=== PATIENT | female | born 1970 | race Caucasian/White ===

== ENCOUNTER 2019-07-20 22:38 | Emergency (ER) | payer MEDICAID ==
[~2019-07-20] VITALS: Ht 160 cm; Wt 82.0 kg
[~2019-07-20 22:38] MED LIST: LISI2.5T47 PO
[2019-07-21] MEDS ORDERED: SODIUM CHLORIDE 0.9% 1,000 ML IV ONE (00:40)
[2019-07-21] MEDS ORDERED: ONDANSETRON HCL 4MG/2ML INJ IV STA (00:40)
[2019-07-21 00:59] LABS: BASOPHILS % 0.8 % (0.0-2.0); EOSINOPHILS % 0.4 % (0.0-5.0); HEMATOCRIT. 40.4 % (36.0-48.0); HEMOGLOBIN. 13.5 g/dL (12.0-16.0); LYMPHOCYTES % 18.1 % (20.0-50.0); MEAN CORPUSCULAR HEMOGLOBIN 30.1 pg (28.0-32.0); MEAN CORPUSCULAR VOLUME 89.7 fL (81.0-99.0); MEAN PLATELET VOLUME 7.7 fl (7.4-10.4); MONOCYTES % 7.7 % (2.0-8.0); PLATELET 341 x1000/uL (130-400); RED BLOOD CELL COUNT 4.51 mill/uL (4.2-5.4); RED CELL DISTRIBUTION WIDTH 13.7 % (11.6-14.6)
[2019-07-21 01:07] LABS: CHLORIDE 103 mEq/L (98-107)
[2019-07-21 01:40] LABS: CLARITY URINE CLOUDY (CLEAR); COLOR URINE YELLOW (YELLOW); KETONES URINE TRACE (NEGATIVE); LEUKOCYTE ESTERASE URINE NEGATIVE (NEGATIVE); NITRITE URINE NEGATIVE (NEGATIVE); OCCULT BLOOD URINE TRACE (NEGATIVE); PH URINE 6.5 (4.5-8.0); PROTEIN URINE NEGATIVE (NEGATIVE); SPECIFIC GRAVITY URINE 1.022 (1.005-1.030)
[2019-07-21 01:51] LABS: *AMPHETAMINES SCREEN URINE NEGATIVE (NEGATIVE); *BARBITURATES SCREEN URINE NEGATIVE (NEGATIVE); *BENZODIAZEPINES SCREEN URINE NEGATIVE (NEGATIVE); *COCAINE SCREEN URINE NEGATIVE (NEGATIVE); CANNABINOID URINE SCREEN NEGATIVE (NEGATIVE); METHADONE URINE SCREEN NEGATIVE (NEGATIVE); OPIATES URINE SCREEN NEGATIVE (NEGATIVE); PHENCYCLIDINE URINE SCREEN NEGATIVE (NEGATIVE)
[2019-07-21 06:38] VITALS: BP 119/78
== END 2019-07-21 06:39 | disposition home or self-care (01) ==
LOC: ER 22:38
DX: R53.1 Weakness (principal); R07.9 Chest pain, unspecified; R51 Headache; R42 Dizziness and giddiness; Z90.49 Acquired absence of other specified parts of digestive tract; Z79.899 Other long term (current) drug therapy
CPT/HCPCS: 36415; 71045; 80053; 80305; 81003; 83690; 83880; 84443; 84484; 85025; 93005; 96374; 99284; J2405; J7030

== ENCOUNTER 2022-06-08 14:17 | Emergency (ER) | payer MEDICAID, OTHER ==
[~2022-06-08] VITALS: Ht 160 cm; Wt 81.0 kg
[2022-06-08] MEDS ORDERED: MORPHINE SULFATE 4 MG/ML CPJ (NOT FOR IM USE) IV STA (14:35)
[2022-06-08] MEDS ORDERED: ASPIRIN 325MG EC TABLET PO ONE (15:00)
[2022-06-08] MEDS ORDERED: NITROGLYCERIN 0.4MG TABLET SL SL ONE (15:00)
[2022-06-08 15:04] LABS: CHLORIDE 104 mEq/L (98-107)
[2022-06-08 15:05] LABS: BASOPHILS % 0.6 % (0.0-2.0); EOSINOPHILS % 0.4 % (0.0-5.0); HEMATOCRIT. 41.3 % (36.0-48.0); HEMOGLOBIN. 13.9 g/dL (12.0-16.0); LYMPHOCYTES % 18.5 % (20.0-50.0); MEAN CORPUSCULAR HEMOGLOBIN 30.2 pg (28.0-32.0); MEAN CORPUSCULAR VOLUME 89.5 fL (81.0-99.0); MEAN PLATELET VOLUME 7.7 fl (7.4-10.4); MONOCYTES % 8.7 % (2.0-8.0); NEUTROPHILS % 71.8 % (40.0-76.0); PLATELET 366 x1000/uL (130-400); RED BLOOD CELL COUNT 4.61 mill/uL (4.2-5.4)
[2022-06-08 20:20] VITALS: BP 112/78
== END 2022-06-08 20:30 | disposition home or self-care (01) ==
LOC: ER 14:17
DX: R07.89 Other chest pain (principal); R06.02 Shortness of breath; R05.9 Cough, unspecified; E11.9 Type 2 diabetes mellitus without complications; I10 Essential (primary) hypertension; Z90.49 Acquired absence of other specified parts of digestive tract; Z20.822 Contact with and (suspected) exposure to COVID-19
CPT/HCPCS: 36415; 71045; 80053; 83605; 83880; 84484; 85025; 85379; 87426; 93005; 96374; 99285; C9803; J2270

== ENCOUNTER 2022-09-03 16:47 | Emergency (ER) | payer MEDICAID, OTHER ==
[~2022-09-03] VITALS: Ht 165.1 cm; Wt 77.0 kg
[2022-09-03 19:58] LABS: BASOPHILS % 0.3 % (0.0-2.0); EOSINOPHILS % 0.4 % (0.0-5.0); HEMATOCRIT. 37.7 % (36.0-48.0); HEMOGLOBIN. 12.8 g/dL (12.0-16.0); LYMPHOCYTES % 17.1 % (20.0-50.0); MEAN CORPUSCULAR HEMOGLOBIN 31.2 pg (28.0-32.0); MEAN CORPUSCULAR VOLUME 91.6 fL (81.0-99.0); MEAN PLATELET VOLUME 7.5 fl (7.4-10.4); MONOCYTES % 7.2 % (2.0-8.0); PLATELET 278 x1000/uL (130-400); RED BLOOD CELL COUNT 4.12 mill/uL (4.2-5.4); RED CELL DISTRIBUTION WIDTH 13.8 % (11.6-14.6)
[2022-09-03 20:06] LABS: CHLORIDE 100 mEq/L (98-107)
[2022-09-03 20:32] LABS: CLARITY URINE CLEAR (CLEAR); COLOR URINE ORANGE (YELLOW); KETONES URINE TRACE (NEGATIVE); LEUKOCYTE ESTERASE URINE 1+ (NEGATIVE); NITRITE URINE NEGATIVE (NEGATIVE); OCCULT BLOOD URINE NEGATIVE (NEGATIVE); PH URINE 5.5 (4.5-8.0); PROTEIN URINE NEGATIVE (NEGATIVE); UROBILINOGEN URINE 0.2 E.U./dL (0.2-1.0)
[2022-09-03] MEDS ORDERED: CEPH500C2 MT (22:05)
[2022-09-03] MEDS ORDERED: ACET-2708 MT (22:13)
[2022-09-03] MEDS ORDERED: KETOROLAC 60MG/2ML VIAL IM ONE (22:15)
[2022-09-03 22:19] VITALS: BP 126/81
== END 2022-09-03 22:22 | disposition home or self-care (01) ==
LOC: ER 16:47
DX: N39.0 Urinary tract infection, site not specified (principal); E11.9 Type 2 diabetes mellitus without complications; I10 Essential (primary) hypertension; Z98.890 Other specified postprocedural states
CPT/HCPCS: 36415; 76700; 80053; 81003; 81025; 82962; 83690; 85025; 85610; 93005; 96372; 99285; J1885

== ENCOUNTER 2022-09-05 22:13 | Emergency (ER) | payer MEDICAID ==
[~2022-09-05] VITALS: Ht 162.6 cm; Wt 75.0 kg
[~2022-09-05 22:13] MED LIST changes: +ACET-2708 MT; +CEPH500C2 MT
[2022-09-05 22:21] VITALS: BP 161/104
[2022-09-05] MEDS ORDERED: ONDANSETRON HCL 4MG/2ML INJ IV STA (23:13)
[2022-09-05] MEDS ORDERED: KETOROLAC 30MG/ML VIAL IV STA (23:13)
[2022-09-05] MEDS ORDERED: SODIUM CHLORIDE 0.9% 1,000 ML IV ONE (23:15)
[2022-09-06 00:19] LABS: BASOPHILS % 0.3 % (0.0-2.0); EOSINOPHILS % 0.6 % (0.0-5.0); HEMATOCRIT. 35.9 % (36.0-48.0); HEMOGLOBIN. 12.3 g/dL (12.0-16.0); MEAN CORPUSCULAR HEMOGLOBIN 31.1 pg (28.0-32.0); MEAN PLATELET VOLUME 7.8 fl (7.4-10.4); MONOCYTES % 7.3 % (2.0-8.0); NEUTROPHILS % 70.8 % (40.0-76.0); PLATELET 245 x1000/uL (130-400); RED BLOOD CELL COUNT 3.94 mill/uL (4.2-5.4); RED CELL DISTRIBUTION WIDTH 13.6 % (11.6-14.6)
[2022-09-06 00:25] LABS: CHLORIDE 97 mEq/L (98-107)
== END 2022-09-05 23:32 | disposition left against medical advice (07) ==
LOC: ER 22:13
DX: Z53.21 Procedure and treatment not carried out due to patient leaving prior to being seen by health care provider (principal)
CPT/HCPCS: 36415; 80053; 82962; 83605; 83690; 85025; 93005; J7030; 99284

== ENCOUNTER 2022-12-20 12:59 | Emergency (ER) | payer MEDICAID ==
[~2022-12-20] VITALS: Ht 160 cm; Wt 75.0 kg
[2022-12-20] MEDS ORDERED: KETOROLAC 60MG/2ML VIAL IM ONE (18:00)
[2022-12-20] MEDS ORDERED: MECLIZINE 25MG TABLET PO ONE (19:15)
[2022-12-20 20:03] VITALS: BP 125/75
== END 2022-12-20 20:04 | disposition home or self-care (01) ==
LOC: ER 12:59
DX: R51.9 Headache, unspecified (principal); E11.9 Type 2 diabetes mellitus without complications; I10 Essential (primary) hypertension; E78.00 Pure hypercholesterolemia, unspecified; Z90.49 Acquired absence of other specified parts of digestive tract
CPT/HCPCS: 93005; 96372; 99283; J1885; J8597

== ENCOUNTER 2023-06-08 22:57 | Inpatient (IN) | payer MEDICAID ==
[~2023-06-08] VITALS: Ht 165.1 cm; Wt 79.8 kg
[~2023-06-08 22:57] MED LIST changes: +ASPI-1497 PO; +ATOR20TA65 PO; -CEPH500C2 MT; +LIDO1ADH71 TOP; +TERB250T88 MT
[2023-06-08] MEDS ORDERED: ONDANSETRON HCL 4MG/2ML INJ IV STA (23:25)
[2023-06-08] MEDS ORDERED: SODIUM CHLORIDE 0.9% 1,000 ML IV ONE (23:30)
[2023-06-09 00:16] LABS: CHLORIDE 93 mEq/L (98-107); INDEX HEMOLYSI 1 (1-3); INDEX ICTERIC 1 (1-4); INDEX LIPEMIC 1 (1-3); SODIUM 131 mEq/L (136-145)
[2023-06-09 00:25] LABS: ALANINE AMINOTRANSFERASE 43 IU/L (13-61); ALBUMIN 3.8 g/dL (3.4-5.0); ASPARTATE AMINOTRANSFERASE 27 IU/L (15-37); BILIRUBIN TOTAL 0.6 mg/dL (0.1-1.0); CALCIUM 9.2 mg/dL (8.5-10.1); CARBON DIOXIDE 30 mEq/L (21-32); CREATININE 0.5 mg/dL (0.6-1.3); ETHANOL BLOOD < 10 mg/dL (-10); GLUCOSE 177 mg/dL (70-105); HCG SCREEN NEGATIVE; PROTEIN TOTAL 7.9 g/dL (6.0-8.3); UREA NITROGEN BLOOD 9 mg/dL (7-21)
[2023-06-09 00:34] LABS: PROTHROMBIN TIME 10.9 sec (9.6-11.0)
[2023-06-09] MEDS ORDERED: MORPHINE SULFATE 4 MG/ML CPJ (NOT FOR IM USE) IV STA (00:34)
[2023-06-09] MEDS ORDERED: KCL 20MEQ/100ML PREMIX 100 ML IV ONE ×2 (01:00)
[2023-06-09] MEDS ORDERED: SODIUM CHLORIDE 0.9% 1,000 ML IV ONE (01:00)
[2023-06-09 01:16] LABS: LACTIC ACID 2.3 mmol/L (0.4-2.0)
[2023-06-09 01:27] LABS: BASOPHILS % 0.3 % (0.0-2.0); EOSINOPHILS % 0.3 % (0.0-5.0); HEMATOCRIT. 37.9 % (36.0-48.0); HEMOGLOBIN. 12.9 g/dL (12.0-16.0); LYMPHOCYTES % 16.1 % (20.0-50.0); MEAN CORPUSCULAR HEMOGLOBIN 29.8 pg (28.0-32.0); MEAN CORPUSCULAR VOLUME 87.7 fL (81.0-99.0); MEAN PLATELET VOLUME 8.4 fl (7.4-10.4); MONOCYTES % 5.6 % (2.0-8.0); NEUTROPHILS % 77.7 % (40.0-76.0); PLATELET 368 x1000/uL (130-400); RED BLOOD CELL COUNT 4.32 mill/uL (4.2-5.4); RED CELL DISTRIBUTION WIDTH 14.1 % (11.6-14.6); WHITE BLOOD COUNT 16.8 x1000/uL (4.5-11.0)
[2023-06-09] MEDS ORDERED: PIPERACILLIN/TAZOBACTAM 3.375GM/50ML PREMIX IV NR (01:30)
[2023-06-09] MEDS ORDERED: ONDANSETRON HCL 4MG/2ML INJ IV ONE (03:15)
[2023-06-09] MEDS ORDERED: MORPHINE SULFATE 4 MG/ML CPJ (NOT FOR IM USE) IV ONE (03:15)
[2023-06-09] MEDS ORDERED: FAMOTIDINE 20MG/2ML VIAL IV ONE (04:45)
[2023-06-09] MEDS ORDERED: IOHEXOL-300 100 ML BOTTLE ONE (05:52)
[2023-06-09 08:06] LABS: CLARITY URINE CLEAR (CLEAR); COLOR URINE YELLOW (YELLOW); GLUCOSE URINE NEGATIVE (NEGATIVE); KETONES URINE NEGATIVE (NEGATIVE); LEUKOCYTE ESTERASE URINE NEGATIVE (NEGATIVE); NITRITE URINE NEGATIVE (NEGATIVE); OCCULT BLOOD URINE TRACE (NEGATIVE); PH URINE 8.5 (4.5-8.0); PROTEIN URINE 1+ (NEGATIVE); SPECIFIC GRAVITY URINE 1.038 (1.005-1.030); UROBILINOGEN URINE 0.2 E.U./dL (0.2-1.0)
[2023-06-09 08:08] LABS: BACTERIA URINE 2+; YEAST URINE NONE SEEN
[2023-06-09 08:37] LABS: SQUAMOUS EPITHELIAL CELL URINE 1+ /lpf (RARE/1+)
[2023-06-09 08:38] LABS: RBC URINE 0-2 /hpf (0-2)
[2023-06-09 08:50] LABS: *AMPHETAMINES SCREEN URINE NEGATIVE (NEGATIVE); *BARBITURATES SCREEN URINE NEGATIVE (NEGATIVE); *BENZODIAZEPINES SCREEN URINE NEGATIVE (NEGATIVE); *COCAINE SCREEN URINE NEGATIVE (NEGATIVE); CANNABINOID URINE SCREEN NEGATIVE (NEGATIVE); ECSTASY MDMA SCREEN URINE NEGATIVE (NEGATIVE); METHADONE URINE SCREEN NEGATIVE (NEGATIVE); OPIATES URINE SCREEN PRESUMTIVE POSITIVE (NEGATIVE); PHENCYCLIDINE URINE SCREEN NEGATIVE (NEGATIVE)
[2023-06-09 10:00] VITALS: BP 104/64; PULSE 86; RESP 18; TEMP 97.5
[2023-06-09 12:00] VITALS: BP 111/69; PULSE 91; RESP 18; TEMP 97.9
[2023-06-09] MEDS ORDERED: ONDANSETRON HCL 4MG/2ML INJ IV PRN (12:15)
[2023-06-09] MEDS ORDERED: DEXTROSE 50% WATER 50ML SYRINGE IV PRN (12:15)
[2023-06-09] MEDS ORDERED: ACETAMINOPHEN 325MG TABLET PO PRN (12:15)
[2023-06-09] MEDS ORDERED: LACTULOSE 20G/30ML UDC PO NR (12:15)
[2023-06-09] MEDS: BLOOD SUGAR DIAGNOSTIC STRIP TEST SCH ×3 (12:52→20:32)
[2023-06-09] MEDS: INSULIN LISPRO 100 UNITS/ML SUBCUT SCH ×3 (12:58→20:32)
[2023-06-09] MEDS ORDERED: LISINOPRIL 10MG TABLET PO NR (13:30)
[2023-06-09] MEDS ORDERED: METOCLOPRAMIDE 10MG/10 ML UDC PO PRN (13:30)
[2023-06-09 16:00] VITALS: BP 97/65; PULSE 96; RESP 18; TEMP 101.5
[2023-06-09 20:00] VITALS: BP 105/67; PULSE 71; RESP 18; TEMP 97.1
[2023-06-09] MEDS ORDERED: ATORVASTATIN CALCIUM 20MG TABLET PO SCH (21:00)
[2023-06-09] MEDS: PIPERACILLIN/TAZOBACTAM 3.375 G in DEXTROSE 5% WATER 50 ML IV SCH (22:56)
[2023-06-10] VITALS: BP 101/57; PULSE 77; RESP 16; TEMP 96.8
[2023-06-10 04:00] VITALS: BP 133/67; PULSE 69; RESP 16; TEMP 97.3
[2023-06-10] MEDS: BLOOD SUGAR DIAGNOSTIC STRIP TEST SCH ×2 (06:27→12:47)
[2023-06-10] MEDS: PIPERACILLIN/TAZOBACTAM 3.375 G in DEXTROSE 5% WATER 50 ML IV SCH (06:31)
[2023-06-10] MEDS: INSULIN LISPRO 100 UNITS/ML SUBCUT SCH ×2 (06:51→12:40)
[2023-06-10 08:00] VITALS: BP 143/68; PULSE 66; RESP 18; TEMP 98.6
[2023-06-10 08:30] LABS: BASOPHILS % 0.6 % (0.0-2.0); EOSINOPHILS % 2.5 % (0.0-5.0); HEMATOCRIT. 33.1 % (36.0-48.0); HEMOGLOBIN. 11.2 g/dL (12.0-16.0); MEAN CORPUSCULAR HEMOGLOBIN 30.1 pg (28.0-32.0); MEAN CORPUSCULAR HGB CONC 33.8 g/dL (31.0-37.0); MEAN CORPUSCULAR VOLUME 89.2 fL (81.0-99.0); MEAN PLATELET VOLUME 8.1 fl (7.4-10.4); MONOCYTES % 7.2 % (2.0-8.0); NEUTROPHILS % 51.7 % (40.0-76.0); PLATELET 348 x1000/uL (130-400); RED BLOOD CELL COUNT 3.71 mill/uL (4.2-5.4); RED CELL DISTRIBUTION WIDTH 13.9 % (11.6-14.6); WHITE BLOOD COUNT 6.8 x1000/uL (4.5-11.0)
[2023-06-10 09:58] LABS: CHLORIDE 109 mEq/L (98-107); INDEX HEMOLYSI 1 (1-3); INDEX ICTERIC 1 (1-4); INDEX LIPEMIC 1 (1-3); SODIUM 139 mEq/L (136-145)
[2023-06-10 10:06] LABS: CALCIUM 8.8 mg/dL (8.5-10.1); CARBON DIOXIDE 25 mEq/L (21-32); CREATININE 0.5 mg/dL (0.6-1.3); GLUCOSE 120 mg/dL (70-105); UREA NITROGEN BLOOD 8 mg/dL (7-21)
[2023-06-10] MEDS ORDERED: DOCU250C14 MT (10:34)
[2023-06-10 12:00] VITALS: BP 102/59; PULSE 79; RESP 20; TEMP 98.1
[2023-06-10 12:25] VITALS: BP 143/68; PULSE 66; TEMP 98.6; O2SAT 96
== END 2023-06-10 14:05 | disposition home or self-care (01) | DRG 720 ==
LOC: ER 22:57 → 8WST 06-09 01:40 → EDBEDREQ 06-09 01:44 → EDBEDREQTM 06-09 01:44 → EDBEDREQSVC 06-09 01:44 → 8WST 06-09 10:21 → UNDODISIN 06-09 17:51
PROVIDERS: ADMIT Internal Medicine; ATTEND Internal Medicine
DX: A41.9 Sepsis, unspecified organism (principal); E11.9 Type 2 diabetes mellitus without complications; K59.00 Constipation, unspecified; E78.00 Pure hypercholesterolemia, unspecified; K62.89 Other specified diseases of anus and rectum; I10 Essential (primary) hypertension; E87.6 Hypokalemia; Z90.49 Acquired absence of other specified parts of digestive tract; Z79.4 Long term (current) use of insulin
CPT/HCPCS: 36415; 74177; 80048; 80053; 80305; 80320; 81003; 82962; 83605; 84703; 85025; 99285; J1815; J2270; J2405; J2543; J3480; J3490; J7030; J7060; Q9967; G0480

== ENCOUNTER 2023-09-26 01:33 | Emergency (ER) | payer MEDICAID, OTHER ==
[~2023-09-26] VITALS: Ht 157.5 cm; Wt 61.0 kg
[~2023-09-26 01:33] MED LIST changes: +DOCU250C14 MT
[2023-09-26 01:41] VITALS: O2SAT 100
[2023-09-26] MEDS ORDERED: MORPHINE SULFATE 4 MG/ML CPJ (NOT FOR IM USE) IV STA (02:11)
[2023-09-26] MEDS ORDERED: ONDANSETRON HCL 4MG/2ML INJ IV STA (02:11)
[2023-09-26 02:54] LABS: BASOPHILS % 0.5 % (0.0-2.0); EOSINOPHILS % 0.5 % (0.0-5.0); HEMATOCRIT. 35.7 % (36.0-48.0); HEMOGLOBIN. 11.9 g/dL (12.0-16.0); LYMPHOCYTES % 24.6 % (20.0-50.0); MEAN CORPUSCULAR HEMOGLOBIN 29.2 pg (28.0-32.0); MEAN CORPUSCULAR HGB CONC 33.4 g/dL (31.0-37.0); MEAN CORPUSCULAR VOLUME 87.4 fL (81.0-99.0); MEAN PLATELET VOLUME 7.2 fl (7.4-10.4); MONOCYTES % 6.5 % (2.0-8.0); NEUTROPHILS % 67.9 % (40.0-76.0); PLATELET 315 x1000/uL (130-400); RED BLOOD CELL COUNT 4.08 mill/uL (4.2-5.4); RED CELL DISTRIBUTION WIDTH 15.2 % (11.6-14.6); WHITE BLOOD COUNT 11.8 x1000/uL (4.5-11.0)
[2023-09-26 03:01] LABS: CHLORIDE 98 mEq/L (98-107); INDEX HEMOLYSI 1 (1-3); INDEX ICTERIC 1 (1-4); INDEX LIPEMIC 1 (1-3); POTASSIUM 3.7 mEq/L (3.5-5.1); SODIUM 133 mEq/L (136-145)
[2023-09-26 03:12] LABS: ALANINE AMINOTRANSFERASE 46 IU/L (13-61); ALBUMIN 3.2 g/dL (3.4-5.0); ASPARTATE AMINOTRANSFERASE 27 IU/L (15-37); BILIRUBIN TOTAL 0.7 mg/dL (0.1-1.0); CALCIUM 8.7 mg/dL (8.5-10.1); CARBON DIOXIDE 27 mEq/L (21-32); CREATININE 0.4 mg/dL (0.6-1.3); GLUCOSE 146 mg/dL (70-105); PROTEIN TOTAL 6.5 g/dL (6.0-8.3); TROPONIN I HIGH SENSITIVITY 4 ng/L (<54); UREA NITROGEN BLOOD 15 mg/dL (7-21)
[2023-09-26 03:33] LABS: LACTIC ACID 3.3 mmol/L (0.4-2.0)
[2023-09-26 05:13] LABS: TROPONIN I HIGH SENSITIVITY 4 ng/L (<54)
[2023-09-26] MEDS ORDERED: FAMO-135 MT (05:57)
[2023-09-26] MEDS ORDERED: ONDA4TAB50 MT (05:57)
[2023-09-26 07:33] VITALS: BP 92/60; PULSE 70; RESP 18; TEMP 98.3
== END 2023-09-26 07:34 | disposition home or self-care (01) ==
LOC: ER 01:33
DX: R11.2 Nausea with vomiting, unspecified (principal); I10 Essential (primary) hypertension; E78.00 Pure hypercholesterolemia, unspecified; E11.9 Type 2 diabetes mellitus without complications; Z90.49 Acquired absence of other specified parts of digestive tract
CPT/HCPCS: 99285; 70450; 96374; 71045; 96375; 80053; 83605; 83690; 85025; 84484; 36415; 74176; J2405; J2270

== ENCOUNTER 2023-11-04 06:09 | Emergency (ER) | payer MEDICAID, OTHER ==
[~2023-11-04] VITALS: Ht 165.1 cm; Wt 75.0 kg
[~2023-11-04 06:09] MED LIST changes: +FAMO-135 MT; +ONDA4TAB50 MT
[2023-11-04 06:13] VITALS: BP 144/88; PULSE 91; RESP 20; TEMP 98.5; O2SAT 100
== END 2023-11-04 11:56 | disposition left against medical advice (07) ==
LOC: ER 06:09
DX: Z53.21 Procedure and treatment not carried out due to patient leaving prior to being seen by health care provider (principal)
CPT/HCPCS: 99281

== ENCOUNTER 2024-05-19 16:39 | Emergency (ER) | payer MEDICAID, OTHER ==
[~2024-05-19] VITALS: Ht 160 cm; Wt 77.0 kg
[~2024-05-19 16:39] MED LIST changes: +LOSA50TA41 MT; +METF-873 PO; +METR-167 MT
[2024-05-19 16:45] VITALS: O2SAT 97
[2024-05-19 17:29] LABS: CHLORIDE 104 mEq/L (98-107); POTASSIUM 3.1 mEq/L (3.5-5.1); SODIUM 138 mEq/L (136-145)
[2024-05-19 17:30] LABS: CALCIUM 9.5 mg/dL (8.7-10.4); CARBON DIOXIDE 24 mEq/L (21-32)
[2024-05-19 17:34] LABS: DIFFERENTIAL COMMENT 1; HEMATOCRIT. 37.1 % (36.0-48.0); MEAN CORPUSCULAR HEMOGLOBIN 28.3 pg (28.0-32.0); MEAN CORPUSCULAR HGB CONC 32.4 g/dL (31.0-37.0); MEAN CORPUSCULAR VOLUME 87.4 fL (81.0-99.0); MEAN PLATELET VOLUME 7.9 fl (7.4-10.4); PLATELET 311 x1000/uL (130-400); RED BLOOD CELL COUNT 4.25 mill/uL (4.2-5.4); RED CELL DISTRIBUTION WIDTH 13.4 % (11.6-14.6); WHITE BLOOD COUNT 14.9 x1000/uL (4.5-11.0)
[2024-05-19 17:35] LABS: CREATININE 0.5 mg/dL (0.6-1.0); GLUCOSE 135 mg/dL (70-105); UREA NITROGEN BLOOD 9 mg/dL (9-23)
[2024-05-19 17:37] LABS: ALANINE AMINOTRANSFERASE 40 IU/L (10-49); ALBUMIN 4.2 g/dL (3.2-4.8); ASPARTATE AMINOTRANSFERASE 29 IU/L (<34); BILIRUBIN DIRECT 0.3 mg/dL (<=3.0); BILIRUBIN TOTAL 0.7 mg/dL (0.1-1.0); PROTEIN TOTAL 6.4 g/dL (6.0-8.3)
[2024-05-19] MEDS: METOCLOPRAMIDE HCL 10MG/2ML VIAL IV ONE (18:10)
[2024-05-19] MEDS: KETOROLAC 30MG/ML VIAL IV STA (18:12)
[2024-05-19] MEDS: SODIUM CHLORIDE 0.9% 1,000 ML IV ONE (18:13)
[2024-05-19 18:15] VITALS: TEMP 98.4
[2024-05-19 19:18] LABS: PLATELET ESTIMATE NORMAL
[2024-05-19 20:34] VITALS: BP 19/70; PULSE 88; RESP 19
== END 2024-05-19 22:05 | disposition home or self-care (01) ==
LOC: ER 16:39
DX: R10.84 Generalized abdominal pain (principal); R11.2 Nausea with vomiting, unspecified; R19.7 Diarrhea, unspecified; F41.9 Anxiety disorder, unspecified; E11.9 Type 2 diabetes mellitus without complications; I10 Essential (primary) hypertension; Z86.73 Personal history of transient ischemic attack (TIA), and cerebral infarction without residual deficits; Z79.899 Other long term (current) drug therapy; Z90.49 Acquired absence of other specified parts of digestive tract
CPT/HCPCS: 80076; 80048; 83690; 85025; 36415; 74176; 96361; 96374; 96375; 99285; J1885; J2765; J7030; Z7610 ×2